=== PATIENT | male | born 1940 | race Caucasian/White ===

== ENCOUNTER → 2020-02-03 09:07 | Outpatient (CLI) | payer OTHER, SELFPAY ==
--- NOTE | 2020-02-03 09:12 | DI.RAD.S_ITS ---
PROCEDURE: XR KNEE LT 1TO2V INDICATIONS: LEFT KNEE PAIN TECHNIQUE: 2 views of the knee were acquired. COMPARISON: [facility], , KNEE 1-2 VIEWS LEFT, 01/05/2015, 13:47. FINDINGS: Bones: No fractures or dislocations. No suspicious bony lesions. Stable appearance of knee arthroplasty. No hardware fracture or periprosthetic lucency. Soft tissues: No joint effusion. No suspicious soft tissue calcifications. IMPRESSION: Stable knee arthroplasty as above. Dictated by: Claire Oscar M.D. on 02/03/2020 at 10:01 Approved by: Cliare Oscar M.D. on 02/03/2020 at 10:01
--- NOTE | 2020-02-03 09:12 | DI.RAD.S_ITS ---
PROCEDURE: XR KNEE RT 1TO2V INDICATIONS: RIGHT KNEE PAIN TECHNIQUE: 2 views of the knee were acquired. COMPARISON: [facility], , KNEE 1-2 VIEWS LEFT, 01/05/2015, 13:47. FINDINGS: Bones: No fractures or dislocations. No suspicious bony lesions. Stable appearance of knee arthroplasty without evidence of hardware fracture or periprosthetic loosening. Soft tissues: Mild joint effusion. No suspicious soft tissue calcifications. IMPRESSION: Stable knee arthroplasty. Dictated by: Claire Oscar M.D. on 02/03/2020 at 10:02 Approved by: Claire Oscar M.D. on 02/03/2020 at 10:03
== END ==
PROVIDERS: PCP Internal Medicine; Referring Provider Chiropractor; Visit Provider Chiropractor
DX: M25.561 Pain in right knee (principal); M25.562 Pain in left knee; M99.03 Segmental and somatic dysfunction of lumbar region; Z96.653 Presence of artificial knee joint, bilateral
CPT/HCPCS: 73560

== ENCOUNTER → 2020-03-01 18:45 | Outpatient (ROUT) | payer OTHER, SELFPAY ==
[2020-03-01 19:13] LABS: Aspartate Aminotransferase 42 IU/L (17-59); BUN Creatinine Ratio 18.9 (6-22); Blood Urea Nitrogen 20 mg/dL (9-20); Calcium 9.4 mg/dL (8.4-10.2); Carbon Dioxide 29 mmol/L (22-32); Chloride 107 mmol/L (98-107); Cholesterol 177 mg/dL (140-199); Estimated Glomerular Filt Rate > 60.0 mL/min (>60); Glucose 98 mg/dL (80-110); HDL Cholesterol 40 mg/dL (40-60); HEMOLYSIS < 15 (0-50); LDL Cholesterol Calculated 101 mg/dL (<100); Potassium 4.4 mmol/L (3.4-5.1); Sodium 143 mmol/L (137-145); Triglycerides 182 mg/dL (35-150)
== END ==
PROVIDERS: PCP Internal Medicine; Visit Provider Internal Medicine
DX: R97.20 Elevated prostate specific antigen [PSA] (principal); E78.2 Mixed hyperlipidemia; I10 Essential (primary) hypertension
CPT/HCPCS: 80048; 80061; 84153; 84450

== ENCOUNTER → 2020-08-12 19:56 | Outpatient (ROUT) | payer OTHER, SELFPAY ==
[2020-08-14 09:36] LABS: PSA, Total 4.1 ng/mL (0.0-4.0)
== END ==
PROVIDERS: PCP Internal Medicine; Visit Provider Internal Medicine
DX: R97.20 Elevated prostate specific antigen [PSA] (principal)
CPT/HCPCS: 84153; 84154